=== PATIENT | female | born 1945 ===

== ENCOUNTER 2018-10-12 11:43 | Day surgery (SDC) | payer MEDICARE ==
[2018-10-12 11:44] VITALS: BMI 28.3
--- NOTE | 2018-10-12 14:26 | CT ---
Date of service: 10/12/2018 PROCEDURE: CT NECK WITHOUT CONTRAST HISTORY: Questionable fish bone esophagus level of clavicles x 6 days COMPARISON: No prior study available for comparison. TECHNIQUE: CT of the neck without intravenous contrast. Coronal and sagittal reformats generated. Radiation dose: Total exam DLP = 327.87 mGy-cm. This CT exam was performed using one or more of the following dose reduction techniques: Automated exposure control, adjustment of the mA and/or kV according to patient size, and/or use of iterative reconstruction technique. FINDINGS: NASOPHARYNX: Unremarkable. SUPRAHYOID NECK: Unremarkable oropharynx, oral cavity, parapharyngeal space and retropharyngeal space. INFRAHYOID NECK: Unremarkable larynx, hypopharynx, and supraglottic space. Vocal cords intact. MASS: None. GLANDS: Parotid and submandibular glands unremarkable. There is a small calcification right lobe thyroid gland. There is a large low-attenuation lesion left lobe thyroid gland for which thyroid ultrasound follow-up recommended. LYMPH NODES: Normal. No lymphadenopathy. CERVICAL SPINE: Mild multilevel degenerative spondylosis of the thoracic spine. OTHER FINDINGS: Mild calcified atherosclerotic plaque changes both carotid bifurcations. No radiopaque foreign bodies are identified. IMPRESSION: There are no radiopaque foreign bodies identified.. Small calcification right lobe thyroid gland with low-attenuation lesion left lobe of the thyroid gland. Recommend follow-up thyroid ultrasound.
--- NOTE | 2018-10-12 14:26 | CP.PCM.HP ---
History of Present Illness - History of Present Illness History of Present Illness: HPI: Patient is a 73 year old female with PMH of Diabetes and HTN presenting with throat pain. Patient was eating fish on Felix night (10/06/18) and felt like a fish bone got stuck in her throat. Patient tried eating more food to try and help push it down with little relief. Patient said she is still able to eat/swallow but the discomfort and pain has been getting worse. Patient feels like something cut her and there is a burning and poking sensation. Patient saw Dr. Bermeo yesterday who referred her to see Dr. Cervantes. Dr. Cervantes saw patient today and did not find anything on exam and believes that the bone is lower that the laryngoscope could see. Patient had tea this morning and her medications. Patient has not eaten anything today. Patient denies headache, chest pain, shortness of breath, abdominal pain, nausea, vomiting, constipation, or diarrhea. Cardio: Dr. Gardner All:NKDA PMHx: DMII, HTN Family History- Mom: of [place] at 84, Dad: DMII, Parkinson's, Alzheimer's Social- denies tobacco, alcohol, illicit drug use, lives with Surgical History- hysterectomy 2013, R breast cyst drainage/removal 2018 Present on Admission - Present on Admission Any Indicators Present on Admission: No History of DVT/PE: No History of Uncontrolled Diabetes: No Urinary Catheter: No Decubitus Ulcer Present: No Review of Systems - Constitutional Constitutional: absent: Fever, Headache - EENT Nose/Mouth/Throat: Odynophagia, Sore Throat. absent: Hoarsness - Cardiovascular Cardiovascular: absent: Chest Pain, Dyspnea - Respiratory Respiratory: absent: Cough, Stridor - Gastrointestinal Gastrointestinal: absent: Abdominal Pain, Nausea, Vomiting - Integumentary Integumentary: absent: Rash - Neurological Neurological: absent: Dizziness Past Patient History - Past Social History Smoking Status: Never Smoked - CARDIAC Hx Hypercholesterolemia: Yes Hx Hypertension: Yes - ENDOCRINE/METABOLIC Hx Diabetes Mellitus Type 2: Yes - PSYCHIATRIC Hx Substance Use: No - SURGICAL HISTORY Hx Hysterectomy: Yes (Partial) - ANESTHESIA Hx Anesthesia: Yes Hx Anesthesia Reactions: No Meds Allergies/Adverse Reactions: Allergies Allergy/AdvReac Type Severity Reaction Status Date / Time No Known Allergies Allergy Verified 10/12/18 11:59 Physical Exam - Constitutional Appears: Non-toxic, No Acute Distress - Head Exam Head Exam: ATRAUMATIC, NORMAL INSPECTION, NORMOCEPHALIC - Eye Exam Eye Exam: EOMI, Normal appearance - ENT Exam ENT Exam: Mucous Membranes Moist - Neck Exam Neck exam: Positive for: Normal Inspection - Respiratory Exam Respiratory Exam: Clear to Auscultation Bilateral, NORMAL BREATHING PATTERN. absent: Rales, Rhonchi, Wheezes, Respiratory Distress, Stridor - Cardiovascular Exam Cardiovascular Exam: REGULAR RHYTHM, RRR, +S1, +S2 - GI/Abdominal Exam GI & Abdominal Exam: Normal Bowel Sounds, Soft - Extremities Exam Extremities exam: Positive for: normal inspection. Negative for: tenderness - Neurological Exam Neurological exam: Alert, Oriented x3 - Psychiatric Exam Psychiatric exam: Normal Affect, Normal Mood - Skin Skin Exam: Intact, Normal Color, Warm Results - Vital Signs Recent Vital Signs: Last Vital Signs Temp 98.5 F 10/12/18 11:55 Pulse 92 H 10/12/18 11:55 Resp 20 10/12/18 11:55 BP 156/76 H 10/12/18 11:55 Pulse Ox 99 10/12/18 11:55 - Labs Result Diagrams: 10/12/18 14:33 10/12/18 14:33 Assessment & Plan - Assessment and Plan (Free Text) Assessment: Throat Pain 2/2 foreign body? NPO EGD today for evaluation normal laryngoscope today with Dr. Cervantes HTN continue Amlodipine 10mg po daily ASA 81mg po daily DMII Metformin 850mg po BID Prophylaxis SCDs Dispo: possible d/c pending endoscopic evaluation Discussed with Dr. Bermeo
--- NOTE | 2018-10-12 14:32 | CP.PCM.CON ---
<Chen Torres - Last Filed: 10/12/18 15:31> History of Present Illness - History of Present Illness History of Present Illness: Gastroenterology Fellow/PGY6 Consult Note for 73 year old female with PMH of Diabetes and HTN presenting with throat pain. Patient describes immediate mid-epigastric throat pain after fish ingestion on tuesday. She attempted to drink water which resulted in approximately fifty- percent relief. Endorses constant dull throat discomfort since tuesday at level of clavicles. Denies heartburn, acid reflux, chest pain, shortness of breath, abdominal pain, diarrhea, constipation, melena, hematochezia, or unintentional weight loss. She last ate solid food yesterday for dinner of salad with soup containing vegetables and no meat products. Last oral intake today of eight ounces of coffee this morning with her home medications. She was referred to ENT by PCP outpatient with a laryngoscope performed within the last five days that was normal. No prior EGD or colonoscopy. Family History- denies stomach cancer, colon cancer Social History- denies tobacco, alcohol, illicit drug use Surgical History- hysterectomy 2013 Review of Systems - Review of Systems Review of Systems: 12-point review of systems negative except for as above Past Patient History - Past Social History Smoking Status: Never Smoked - CARDIAC Hx Hypercholesterolemia: Yes Hx Hypertension: Yes - ENDOCRINE/METABOLIC Hx Diabetes Mellitus Type 2: Yes - PSYCHIATRIC Hx Substance Use: No - SURGICAL HISTORY Hx Hysterectomy: Yes (Partial) - ANESTHESIA Hx Anesthesia: Yes Hx Anesthesia Reactions: No Meds Allergies/Adverse Reactions: Allergies Allergy/AdvReac Type Severity Reaction Status Date / Time No Known Allergies Allergy Verified 10/12/18 11:59 Physical Exam - Constitutional Appears: Non-toxic, No Acute Distress - Head Exam Head Exam: ATRAUMATIC, NORMOCEPHALIC - Eye Exam Eye Exam: EOMI, PERRL. absent: Scleral icterus Pupil Exam: PERRL. absent: Miosis, Mydriatic - ENT Exam ENT Exam: Mucous Membranes Moist, Normal Oropharynx - Neck Exam Neck exam: Positive for: Full Rom, Normal Inspection - Respiratory Exam Respiratory Exam: Clear to Auscultation Bilateral. absent: Rales, Rhonchi, Wheezes - Cardiovascular Exam Cardiovascular Exam: RRR, +S1, +S2. absent: Gallop, Rubs - GI/Abdominal Exam GI & Abdominal Exam: Normal Bowel Sounds, Soft. absent: Distended, Firm, Guarding, Organomegaly, Rebound, Rigid, Tenderness - Extremities Exam Extremities exam: Positive for: normal inspection. Negative for: pedal edema - Neurological Exam Neurological exam: Alert, Oriented x3 - Psychiatric Exam Psychiatric exam: Normal Affect, Normal Mood - Skin Skin Exam: Dry, Intact, Normal Color, Warm Results - Vital Signs Recent Vital Signs: Last Vital Signs Temp 98.5 F 10/12/18 11:55 Pulse 92 H 10/12/18 11:55 Resp 20 10/12/18 11:55 BP 156/76 H 10/12/18 11:55 Pulse Ox 99 10/12/18 11:55 - Labs Result Diagrams: 10/12/18 14:33 10/12/18 14:33 Assessment & Plan - Assessment and Plan (Free Text) Assessment: 73 year old female with PMH of Diabetes and HTN presenting with throat pain. Active treatment of throat pain with concern for foreign body after fish bone ingestion seven days ago. No prior EGD or colonoscopy. Plan: -plan for EGD today to evaluate for foreign body -NPO status -hemodynamically stable -last oral intake- eight ounces of coffee this morning with her home medications -recent outpatient ENT evaluation- normal laryngoscope in last five days -further recommendations after endoscopic evaluation <Chris Wells - Last Filed: 10/12/18 17:51> Meds - Medications Medications: Current Medications Amlodipine Besylate (Norvasc) 10 mg PO DAILY [facility] Aspirin (Aspirin Chewable) 81 mg PO DAILY [facility] Dextrose (Dextrose 50% Inj) 50 ml IV STAT PRN; Protocol PRN Reason: Hypoglycemia Protocol Dextrose (Glutose 15) 0 gm PO ONCE PRN; Protocol PRN Reason: Hypoglycemia Protocol Glucagon (Glucagen Diagnostic Kit) 0 mg IM STAT PRN; Protocol PRN Reason: Hypoglycemia Protocol Dextrose (Dextrose 5% In Water 1000 Ml) 1,000 mls @ 0 mls/hr IV .Q0M PRN; Protocol PRN Reason: Hypoglycemia Protocol Insulin Human Regular (Novolin R) 0 unit SC Q6H [facility]; Protocol Last Admin: 10/12/18 17:22 Dose: Not Given Metformin HCl (Glucophage) 850 mg PO BIDCC [facility] Results - Vital Signs Recent Vital Signs: Last Vital Signs Temp 97.7 F 10/12/18 16:17 Pulse 74 03/21/19 16:17 Resp 20 10/12/18 16:17 BP 150/69 10/12/18 16:17 Pulse Ox 97 10/12/18 16:35 - Labs Result Diagrams: 10/12/18 14:33 10/12/18 14:33 Labs: Laboratory Results - last 24 hr 10/12/18 10/12/18 10/12/18 14:33 14:33 14:33 WBC 7.2 RBC 3.91 Hgb 11.9 Hct 36.1 MCV 92.3 D MCH 30.5 MCHC 33.0 RDW 13.7 Plt Count 207 MPV 8.2 Neut % (Auto) 64.0 Lymph % (Auto) 24.1 [place] % (Auto) 7.1 Eos % (Auto) 4.1 H Baso % (Auto) 0.7 Neut # (Auto) 4.6 Lymph # (Auto) 1.7 [place] # (Auto) 0.5 Eos # (Auto) 0.3 Baso # (Auto) 0.1 PT 11.2 INR 1.0 APTT 35 H Sodium 137 Potassium 4.2 Chloride 102 Carbon Dioxide 29 Anion Gap 11 BUN 13 Creatinine 0.7 Est GFR ( Amer) > 60 Est GFR (Non-Af Amer) > 60 POC Glucose (mg/dL) Random Glucose 148 H Calcium 10.1 Total Bilirubin 0.3 AST 24 ALT 14 Alkaline Phosphatase 107 Total Protein 7.0 Albumin 4.4 Globulin 2.6 Albumin/Globulin Ratio 1.7 10/12/18 15:53 WBC RBC Hgb Hct MCV MCH MCHC RDW Plt Count MPV Neut % (Auto) Lymph % (Auto) Red[place] % (Auto) Eos % (Auto) Baso % (Auto) Neut # (Auto) Lymph # (Auto) Red[place] # (Auto) Eos # (Auto) Baso # (Auto) PT INR APTT Sodium Potassium Chloride Carbon Dioxide Anion Gap BUN Creatinine Est GFR ( Amer) Est GFR (Non-Af Amer) POC Glucose (mg/dL) 137 H Random Glucose Calcium Total Bilirubin AST ALT Alkaline Phosphatase Total Protein Albumin Globulin Albumin/Globulin Ratio Attending/Attestation - Attestation I have personally seen and examined this patient.: Yes I have fully participated in the care of the patient.: Yes I have reviewed all pertinent clinical information: Yes Notes (Text): 10/12/18 17:49 CT scan of the throat shows no evidence of foreign body or inflammatory reaction that would be expected after six days if embedded in tissue for this period of time. Plan for emergency EGD today to assess for foreign body. IV fluids and PPI.
[2018-10-12 14:38] LABS: BASO # 0.1 K/uL (0.0-0.2); BASO % 0.7 % (0.0-2.0); EOS # 0.3 K/uL (0.0-0.7); EOS % 4.1 % (0.0-4.0); HEMOGLOBIN 11.9 g/dL (11.0-16.0); LYMPH # 1.7 K/uL (1.0-4.3); LYMPH % 24.1 % (20.0-40.0); MEAN CELL VOLUME 92.3 fL (81.0-99.0); MEAN CORPUSCULAR HEMOGLOBIN 30.5 pg (27.0-31.0); MEAN PLATELET VOLUME 8.2 fL (7.2-11.7); MONO # 0.5 K/uL (0.0-0.8); MONO % 7.1 % (0.0-10.0); NEUT # 4.6 K/uL (1.8-7.0); RBC 3.91 Mil/uL (3.80-5.20); RED CELL DISTRIBUTION WIDTH 13.7 % (11.5-14.5); WHITE BLOOD COUNT 7.2 K/uL (4.8-10.8)
[2018-10-12 14:46] LABS: PROTHROMBIN TIME 11.2 SECONDS (9.7-12.2)
[2018-10-12 14:55] LABS: ALB/GLOB RATIO 1.7 (1.0-2.1); ALBUMIN 4.4 g/dL (3.5-5.0); ALT/SGPT 14 U/L (9-52); AST/SGOT 24 U/L (14-36); BLOOD UREA NITROGEN 13 mg/dL (7-17); CALCIUM 10.1 mg/dl (8.6-10.4); GFR NON-AFRICAN AMERICAN > 60
--- NOTE | 2018-10-12 15:02 | RAD ---
Date of service: 10/12/2018 PROCEDURE: CHEST RADIOGRAPH, 1 VIEW HISTORY: SOB COMPARISON: 02/28/2013 FINDINGS: LUNGS: Clear. PLEURA: No pneumothorax or pleural fluid seen. CARDIOVASCULAR: There is atherosclerotic calcification of the thoracic aorta. Normal heart size. No congestive change. Please note that there is no radiopaque foreign body seen along the tracheal bronchial tree. OSSEOUS STRUCTURES: No significant abnormalities. VISUALIZED UPPER ABDOMEN: Normal. OTHER FINDINGS: None. IMPRESSION: No radiopaque foreign body identified.
[2018-10-12] MEDS ORDERED: Glucagon Recombinant 1 mg Inj IM PRN (15:10)
[2018-10-12] MEDS ORDERED: Dextrose 50% SYRINGE Inj (50 ml) IV PRN (15:10)
[2018-10-12] MEDS ORDERED: (Novolin R) Insulin Human Regular 100 units/ml vial SC SCH ×2 (15:15→18:00)
--- NOTE | 2018-10-12 15:24 | CP.PCM.DIS ---
<Hank Lutz E - Last Filed: 10/12/18 15:38> Provider - Provider Date of Admission: 10/12/18 14:06 Attending physician: Issac Bermeo Jr, MD Consults: 10/12/18 14:41 Gastroenterology Consult Routine Comment: esophagus FB Consulting Provider: Chris Wells Consulting Physician: Chris Wells Reason for Consult: esophagus FB Hospital Course - Lab Results Lab Results: Most Recent Lab Values WBC 7.2 K/uL (4.8-10.8) 10/12/18 14:33 RBC 3.91 Mil/uL (3.80-5.20) 10/12/18 14:33 Hgb 11.9 g/dL (11.0-16.0) 10/12/18 14:33 Hct 36.1 % (34.0-47.0) 10/12/18 14:33 MCV 92.3 fL (81.0-99.0) D 10/12/18 14:33 MCH 30.5 pg (27.0-31.0) 10/12/18 14:33 MCHC 33.0 g/dL (33.0-37.0) 10/12/18 14:33 RDW 13.7 % (11.5-14.5) 10/12/18 14:33 Plt Count 207 K/uL (130-400) 10/12/18 14:33 MPV 8.2 fL (7.2-11.7) 10/12/18 14:33 Neut % (Auto) 64.0 % (50.0-75.0) 10/12/18 14:33 Lymph % (Auto) 24.1 % (20.0-40.0) 10/12/18 14:33 [place] % (Auto) 7.1 % (0.0-10.0) 10/12/18 14:33 Eos % (Auto) 4.1 % (0.0-4.0) H 10/12/18 14:33 Baso % (Auto) 0.7 % (0.0-2.0) 10/12/18 14:33 Neut # (Auto) 4.6 K/uL (1.8-7.0) 10/12/18 14:33 Lymph # (Auto) 1.7 K/uL (1.0-4.3) 10/12/18 14:33 [place]imer # (Auto) 0.5 K/uL (0.0-0.8) 10/12/18 14:33 Eos # (Auto) 0.3 K/uL (0.0-0.7) 10/12/18 14:33 Baso # (Auto) 0.1 K/uL (0.0-0.2) 10/12/18 14:33 PT 11.2 SECONDS (9.7-12.2) 10/12/18 14:33 INR 1.0 10/12/18 14:33 APTT 35 SECONDS (21-34) H 10/12/18 14:33 Sodium 137 mmol/L (132-148) 10/12/18 14:33 Potassium 4.2 mmol/L (3.6-5.2) 10/12/18 14:33 Chloride 102 mmol/L (98-107) 10/12/18 14:33 Carbon Dioxide 29 mmol/L (22-30) 10/12/18 14:33 Anion Gap 11 (10-20) 10/12/18 14:33 BUN 13 mg/dL (7-17) 10/12/18 14:33 Creatinine 0.7 mg/dL (0.7-1.2) 10/12/18 14:33 Est GFR ( Amer) > 60 10/12/18 14:33 Est GFR (Non-Af Amer) > 60 10/12/18 14:33 Random Glucose 148 mg/dL (65-105) H 10/12/18 14:33 Calcium 10.1 mg/dl (8.6-10.4) 10/12/18 14:33 Total Bilirubin 0.3 mg/dL (0.2-1.3) 10/12/18 14:33 AST 24 U/L (14-36) 10/12/18 14:33 ALT 14 U/L (9-52) 10/12/18 14:33 Alkaline Phosphatase 107 U/L (38-126) 10/12/18 14:33 Total Protein 7.0 g/dL (6.3-8.3) 10/12/18 14:33 Albumin 4.4 g/dL (3.5-5.0) 10/12/18 14:33 Globulin 2.6 gm/dL (2.2-3.9) 10/12/18 14:33 Albumin/Globulin Ratio 1.7 (1.0-2.1) 10/12/18 14:33 Discharge Plan - Discharge Medications Prescriptions: Famotidine [Pepcid] 20 mg PO DAILY #7 tab - Follow Up Plan Condition: GOOD Disposition: HOME/ ROUTINE Instructions: Foreign Body, Swallowed, Adult (DC) Additional Instructions: Patient had endoscopy performed by Dr. Wells fishbone was removed from esophagus Patient stable for discharge. Please follow up with Dr Wells in the office If symptoms return, please seek medical attention take care and be well Referrals: Chris Wells MD [Staff Provider] - <Kenzie Moser - Last Filed: 10/13/18 15:56> Provider - Provider Date of Admission: 10/12/18 14:06 Attending physician: Issac Bermeo Jr, MD Consults: 10/12/18 14:41 Gastroenterology Consult Routine Comment: esophagus FB Consulting Provider: Chris Wells Consulting Physician: Chris Wells Reason for Consult: esophagus FB Time Spent in preparation of Discharge (in minutes): 35 Diagnosis - Discharge Diagnosis (1) Reflux esophagitis Status: Acute (2) Hiatal hernia Status: Acute Hospital Course - Lab Results Lab Results: Most Recent Lab Values WBC 7.2 K/uL (4.8-10.8) 10/12/18 14:33 RBC 3.91 Mil/uL (3.80-5.20) 10/12/18 14:33 Hgb 11.9 g/dL (11.0-16.0) 10/12/18 14:33 Hct 36.1 % (34.0-47.0) 10/12/18 14:33 MCV 92.3 fL (81.0-99.0) D 10/12/18 14:33 MCH 30.5 pg (27.0-31.0) 10/12/18 14:33 MCHC 33.0 g/dL (33.0-37.0) 10/12/18 14:33 RDW 13.7 % (11.5-14.5) 10/12/18 14:33 Plt Count 207 K/uL (130-400) 10/12/18 14:33 MPV 8.2 fL (7.2-11.7) 10/12/18 14:33 Neut % (Auto) 64.0 % (50.0-75.0) 10/12/18 14:33 Lymph % (Auto) 24.1 % (20.0-40.0) 10/12/18 14:33 [place] % (Auto) 7.1 % (0.0-10.0) 10/12/18 14:33 Eos % (Auto) 4.1 % (0.0-4.0) H 10/12/18 14:33 Baso % (Auto) 0.7 % (0.0-2.0) 10/12/18 14:33 Neut # (Auto) 4.6 K/uL (1.8-7.0) 10/12/18 14:33 Lymph # (Auto) 1.7 K/uL (1.0-4.3) 10/12/18 14:33 [place] # (Auto) 0.5 K/uL (0.0-0.8) 10/12/18 14:33 Eos # (Auto) 0.3 K/uL (0.0-0.7) 10/12/18 14:33 Baso # (Auto) 0.1 K/uL (0.0-0.2) 10/12/18 14:33 PT 11.2 SECONDS (9.7-12.2) 10/12/18 14:33 INR 1.0 10/12/18 14:33 APTT 35 SECONDS (21-34) H 10/12/18 14:33 Sodium 137 mmol/L (132-148) 10/12/18 14:33 Potassium 4.2 mmol/L (3.6-5.2) 10/12/18 14:33 Chloride 102 mmol/L (98-107) 10/12/18 14:33 Carbon Dioxide 29 mmol/L (22-30) 10/12/18 14:33 Anion Gap 11 (10-20) 10/12/18 14:33 BUN 13 mg/dL (7-17) 10/12/18 14:33 Creatinine 0.7 mg/dL (0.7-1.2) 10/12/18 14:33 Est GFR ( Amer) > 60 10/12/18 14:33 Est GFR (Non-Af Amer) > 60 10/12/18 14:33 Random Glucose 148 mg/dL (65-105) H 10/12/18 14:33 Calcium 10.1 mg/dl (8.6-10.4) 10/12/18 14:33 Total Bilirubin 0.3 mg/dL (0.2-1.3) 10/12/18 14:33 AST 24 U/L (14-36) 10/12/18 14:33 ALT 14 U/L (9-52) 10/12/18 14:33 Alkaline Phosphatase 107 U/L (38-126) 10/12/18 14:33 Total Protein 7.0 g/dL (6.3-8.3) 10/12/18 14:33 Albumin 4.4 g/dL (3.5-5.0) 10/12/18 14:33 Globulin 2.6 gm/dL (2.2-3.9) 10/12/18 14:33 Albumin/Globulin Ratio 1.7 (1.0-2.1) 10/12/18 14:33 - Hospital Course Hospital Course: "HPI: Patient is a 73 year old female with PMH of Diabetes and HTN presenting with throat pain. Patient was eating fish on Tuesday night (10/06/18) and felt li ke a fish bone got stuck in her throat. Patient tried eating more food to try and help push it down with little relief. Patient said she is still able to eat/swallow but the discomfort and pain has been getting worse. Patient feels like something cut her and there is a burning and poking sensation. Patient saw Dr. Bermeo yesterday who referred her to see Dr. Cervantes. Dr. Cervantes saw patient today and did not find anything on exam and believes that the bone is lower that the laryngoscope could see. Patient had tea this morning and her medications. Patient has not eaten anything today. Patient denies headache, chest pain, shortness of breath, abdominal pain, nausea, vomiting, constipation, or diarrhea." Patient had endoscopy performed by Dr. Wells. No foreign body or inflammatory reaction seen. Reflux esophagitis and small hiatal hernia seen. Pre-pyloric gastritis with superficial erosions and biopsy done to rule out H pylori. Patient stable for discharge. Patient to follow up with Dr. Bermeo as an outpatient and to follow up with GI in 2 weeks if symptoms persist. This is a summary of the patient's hospital course, please see chart for full details. Discharge Exam - Head Exam Head Exam: ATRAUMATIC, NORMAL INSPECTION, NORMOCEPHALIC - Eye Exam Eye Exam: EOMI, Normal appearance - ENT Exam ENT Exam: Mucous Membranes Moist - Neck Exam Neck exam: Normal Inspection - Respiratory Exam Respiratory Exam: Clear to PA & Lateral, NORMAL BREATHING PATTERN, UNREMARKABLE. absent: Rhonchi, Wheezes, Respiratory Distress, Stridor - Cardiovascular Exam Cardiovascular Exam: REGULAR RHYTHM, RRR, +S1, +S2 - GI/Abdominal Exam GI & Abdominal Exam: Normal Bowel Sounds, Soft. absent: Tenderness - Extremities Exam Extremities exam: normal inspection - Neurological Exam Neurological exam: Alert, Oriented x3 - Psychiatric Exam Psychiatric exam: Normal Affect, Normal Mood - Skin Skin Exam: Intact, Normal Color, Warm
--- NOTE | 2018-10-12 15:56 | C.PDOC ---
History Of Present Illness 73 year old female referred to ED by for GI evaluation. Patient states that she feels a foreign body stuck in her esophagus for the past 6 days since she ate a fish dinner with bones . Patient states that she feels a sensation of something stuck. She states that she has been eating with dysphasia. She was seen by Dr. Cervantes. Nasalpharyngeo fiberoptic scope showed no foreign body above the vocal cords. She denies blood, coughing, nausea, and fever. Time Seen by Provider: 10/12/18 12:01 Chief Complaint (Nursing): Foreign Body History Per: Patient History/Exam Limitations: no limitations Onset/Duration Of Symptoms: Days (6) Current Symptoms Are (Timing): Still Present Context: Travel Associated Symptoms: denies: Nausea, Dyspnea, Diaphoresis Modifying Factors: None Exacerbating Factors: None Alleviating Factors: None Past Medical History Reviewed: Historical Data, Nursing Documentation, Vital Signs Vital Signs: Last Vital Signs Temp 98 F 10/12/18 14:45 Pulse 72 10/12/18 14:45 Resp 20 10/12/18 14:45 BP 132/72 10/12/18 14:45 Pulse Ox 97 10/12/18 14:45 - Medical History PMH: Diabetes, HTN, Hypercholesterolemia Surgical History: No Surg Hx - [facility] Procedures CYSTOSCOPY NEC (03/05/13) D & C NEC (01/29/13) LAPAROSCOP SUPRACERVICAL HYSTERECTOMY (LSH) (03/05/13) Family History: States: Unknown Family Hx - Social History Hx Alcohol Use: No Hx Substance Use: No - Immunization History Hx Tetanus Toxoid Vaccination: No Hx Influenza Vaccination: Yes Hx Pneumococcal Vaccination: Yes Review Of Systems Constitutional: Negative for: Fever, Chills, Weakness ENT: Positive for: Other (feels foreign body stuck in the esophagus, no bleeding) Respiratory: Negative for: Cough Gastrointestinal: Negative for: Nausea Neurological: Negative for: Weakness, Numbness, Dizziness Physical Exam - Physical Exam Appears: Non-toxic, No Acute Distress Skin: Normal Color, Warm, Dry Head: Atraumatic, Normacephalic Throat: Other (Oropharynx clear, no foreign body noted) Neck: Normal ROM, Supple Chest: Symmetrical, No Deformity Respiratory: No Accessory Muscle Use Neurological/Psych: Oriented x3, Normal Speech, Normal Cognition ED Course And Treatment - Laboratory Results Result Diagrams: 10/12/18 14:33 10/12/18 14:33 Lab Results: PT 11.2 SECONDS (9.7-12.2) 10/12/18 14:33 INR 1.0 10/12/18 14:33 APTT 35 SECONDS (21-34) H 10/12/18 14:33 Total Bilirubin 0.3 mg/dL (0.2-1.3) 10/12/18 14:33 AST 24 U/L (14-36) 10/12/18 14:33 ALT 14 U/L (9-52) 10/12/18 14:33 Alkaline Phosphatase 107 U/L (38-126) 10/12/18 14:33 Total Protein 7.0 g/dL (6.3-8.3) 10/12/18 14:33 Albumin 4.4 g/dL (3.5-5.0) 10/12/18 14:33 Globulin 2.6 gm/dL (2.2-3.9) 10/12/18 14:33 Albumin/Globulin Ratio 1.7 (1.0-2.1) 10/12/18 14:33 Lab Interpretation: Normal ECG: Interpreted By Me, Viewed By Me ECG Rhythm: Sinus Rhythm ECG Interpretation: Normal Rate From EC O2 Sat by Pulse Oximetry: 97 (in RA) Pulse Ox Interpretation: Normal - Radiology CXR: Interpreted by Me CXR Interpretation: Yes: No Acute Disease - CT Scan/US Neck Soft Tissue CT Other Rad Studies (CT/US): Interpreted By Me, Read By Radiologist CT/US Interpretation: IMPRESSION: There are no radiopaque foreign bodies identified.. Small calcification right lobe thyroid gland with low-attenuation lesion left lobe of the thyroid gland. Recommend follow-up thyroid ultrasound. Progress Note: Discussed case with Dr. Eddi Wells. Requested soft tissue neck CT and consult with GI fellow. 1400: Spoke with GI fellow and will admit patient for scope at 6 pm. 1400:discussed with and resident. Agrees to admit patient for observation and scope. Neck Soft Tissue CT, CXR, and EKG ordered for patient. Labs with CMP and CBC ordered for patient. Reevaluation Time: 15:00 Reassessment Condition: Unchanged Medical Decision Making Medical Decision Making: probable fish bone caught in esophagus from fish dinner 6 days ago no FB noted on soft tissue neck CT Disposition Doctor Will See Patient In The: Hospital Counseled Patient/Family Regarding: Studies Performed, Diagnosis - Disposition Disposition: HOSPITALIZED Disposition Time: 15:00 Condition: GOOD - Clinical Impression Clinical Impression: FB esophagus - Scribe Statement The provider has reviewed the documentation as recorded by the Scribe (Nasrin Chávez) All medical record entries made by the Scribe were at my direction and personally dictated by me. I have reviewed the chart and agree that the record accurately reflects my personal performance of the history, physical exam, medical decision making, and the department course for this patient. I have also personally directed, reviewed, and agree with the discharge instructions and disposition.
[2018-10-12] MEDS ORDERED: Lactated Ringer's 500 ML IV ONE ×3 (17:24)
[2018-10-12] MEDS ORDERED: Propofol 10 mg/ml Inj (20 ML) ONE (17:30)
[2018-10-12] MEDS ORDERED: Pantoprazole 40 mg EC Tab PO STA ×2 (17:52→17:53)
--- NOTE | 2018-10-12 17:58 | CP.PCM.PN ---
Subjective - Date & Time of Evaluation Date of Evaluation: 10/12/18 Time of Evaluation: 17:55 - Subjective Subjective: Brief EGD NOte: No foreign body or inflammatory reaction anywhere in the upper esophagus. Reflux esophagitis and small hiatal hernia Pre-pyloric gastritis with superficial erosions Check biopsies PPI for 14 days po ENT follow up as out patient if symptoms persist. No relation to fish bone ingestion (no inflammation noted six days after ingestion would be highly unlikely) Stable for discharge this evening if able to tolerate soft diet. Objective - Vital Signs/Intake and Output Vital Signs (last 24 hours): Temp Pulse Resp BP Pulse Ox 97.7 F 77 18 146/78 100 10/12/18 16:17 10/12/18 17:25 10/12/18 17:25 10/12/18 17:25 10/12/18 17:25 - Medications Medications: Current Medications Amlodipine Besylate (Norvasc) 10 mg PO DAILY [facility] Aspirin (Aspirin Chewable) 81 mg PO DAILY [facility] Dextrose (Dextrose 50% Inj) 50 ml IV STAT PRN; Protocol PRN Reason: Hypoglycemia Protocol Dextrose (Glutose 15) 0 gm PO ONCE PRN; Protocol PRN Reason: Hypoglycemia Protocol Glucagon (Glucagen Diagnostic Kit) 0 mg IM STAT PRN; Protocol PRN Reason: Hypoglycemia Protocol Dextrose (Dextrose 5% In Water 1000 Ml) 1,000 mls @ 0 mls/hr IV .Q0M PRN; Protocol PRN Reason: Hypoglycemia Protocol Insulin Human Regular (Novolin R) 0 unit SC Q6H [facility]; Protocol Last Admin: 10/12/18 17:22 Dose: Not Given Metformin HCl (Glucophage) 850 mg PO BIDCC [facility] - Labs Labs: 10/12/18 14:33 10/12/18 14:33 PT 11.2 SECONDS (9.7-12.2) 10/12/18 14:33 INR 1.0 10/12/18 14:33 APTT 35 SECONDS (21-34) H 10/12/18 14:33
[2018-10-12 19:02] VITALS: BP 153/62; PULSE 76; RESP 14; TEMP 97.7; O2SAT 99
== END 2018-10-12 20:01 | disposition home or self-care (01) ==
LOC: C.ER 11:43 → C.SDS 11:43 → C.3T 14:06 → UNDOADMOB 14:06 → C.SDS 14:43 → C.ER 14:43 → EDSTATUS 15:39 → UNDODISOB 20:01 → C.SDS 20:01
PROVIDERS: ATTEND Internal Medicine
DX: K21.0 Gastro-esophageal reflux disease with esophagitis (principal); K29.00 Acute gastritis without bleeding; K44.9 Diaphragmatic hernia without obstruction or gangrene; B96.81 Helicobacter pylori [H. pylori] as the cause of diseases classified elsewhere; R07.0 Pain in throat; E11.9 Type 2 diabetes mellitus without complications; I10 Essential (primary) hypertension; E78.00 Pure hypercholesterolemia, unspecified; Z79.84 Long term (current) use of oral hypoglycemic drugs; Z90.710 Acquired absence of both cervix and uterus; Z82.0 Family history of epilepsy and other diseases of the nervous system; Z82.49 Family history of ischemic heart disease and other diseases of the circulatory system; Z83.3 Family history of diabetes mellitus
CPT/HCPCS: 36415; 43239; 70490; 71045; 80053; 82948; 85025; 85610; 85730; 88305; 88312; 88313; 88342; J7120

== ENCOUNTER 2018-10-20 12:20 | Observation (INO) | payer MEDICARE ==
[2018-10-20 12:20] VITALS: BMI 28.3
[2018-10-20 13:22] LABS: BASO % 0.7 % (0.0-2.0); EOS # 0.1 K/uL (0.0-0.7); EOS % 0.9 % (0.0-4.0); HEMOGLOBIN 11.9 g/dL (11.0-16.0); LYMPH # 0.5 K/uL (1.0-4.3); LYMPH % 6.4 % (20.0-40.0); MEAN CELL VOLUME 90.5 fL (81.0-99.0); MEAN CORPUSCULAR HEMOGLOBIN 31.3 pg (27.0-31.0); MEAN CORPUSCULAR HGB CONC 34.6 g/dL (33.0-37.0); MEAN PLATELET VOLUME 7.7 fL (7.2-11.7); MONO # 0.9 K/uL (0.0-0.8); MONO % 13.1 % (0.0-10.0); NEUT # 5.6 K/uL (1.8-7.0); NEUT % 78.9 % (50.0-75.0); PLATELET COUNT 224 K/uL (130-400); RBC 3.81 Mil/uL (3.80-5.20); RED CELL DISTRIBUTION WIDTH 13.6 % (11.5-14.5); WHITE BLOOD COUNT 7.1 K/uL (4.8-10.8)
[2018-10-20 13:35] LABS: SQUAMOUS EPITHIAL 1 /hpf (0-5); URINE BACTERIA MANY (<OCC); URINE BILIRUBIN NEGATIVE (NEGATIVE); URINE BLOOD NEGATIVE (NEGATIVE); URINE CLARITY Hazy (Clear); URINE COLOR Yellow (YELLOW); URINE GLUCOSE (UA) NORMAL (Normal); URINE LEUKOCYTE ESTERASE TRACE Leu/uL (Negative); URINE PROTEIN 2+ mg/dL (NEGATIVE); URINE UROBILINOGEN NORMAL mg/dL (0.2-1.0)
[2018-10-20 13:39] LABS: ALB/GLOB RATIO 1.7 (1.0-2.1); ALBUMIN 4.5 g/dL (3.5-5.0); ALT/SGPT 17 U/L (9-52); AST/SGOT 32 U/L (14-36); BLOOD UREA NITROGEN 15 mg/dL (7-17); CALCIUM 9.4 mg/dl (8.6-10.4); GFR NON-AFRICAN AMERICAN > 60
[2018-10-20] MEDS ORDERED: cefTRIAXone IV 1 gm in Dextros 50 ML IV ONE (13:56)
--- NOTE | 2018-10-20 13:57 | C.PDOC ---
History Of Present Illness The patient comes in complaining of fever, body aches, cough and sore throat since yesterday. Patient states she went to see her doctor today who sent her to the ED for further testing. Per chart she had Rapid strep and flu tests which were negative. Patient has fever of 102F and elevated heart rate. Patient denies headache, dizziness, SOB, chest pain, abdominal pain, vomiting or diarrhea. HPI: Influenza Time Seen by Provider: 10/20/18 12:37 Chief Complaint: Flu-like Symptoms Chief Complaint (Provider): Flu-like Symptoms History Per: Patient Exam Limitations: no limitations Onset/Duration Of Symptoms: Days Symptoms include: fever, bodyaches, sore throat, cough Risk factors for flu complications: Yes: adult > 65 years Past Medical History Reviewed: Historical Data, Nursing Documentation, Vital Signs Vital Signs: Last Vital Signs Temp 102.7 F H 10/20/18 12:31 Pulse 108 H 10/20/18 12:31 Resp 18 10/20/18 12:31 BP 169/77 H 10/20/18 12:31 Pulse Ox 98 10/20/18 12:31 - Medical History PMH: Diabetes, HTN, Hypercholesterolemia - [facility] Procedures CYSTOSCOPY NEC (03/05/13) D & C NEC (01/29/13) LAPAROSCOP SUPRACERVICAL HYSTERECTOMY (LSH) (03/05/13) Family History: States: Unknown Family Hx - Social History Hx Alcohol Use: No Hx Substance Use: No - Immunization History Hx Tetanus Toxoid Vaccination: No Hx Influenza Vaccination: Yes Hx Pneumococcal Vaccination: Yes Review Of Systems Except As Marked, All Systems Reviewed And Found Negative. Constitutional: Positive for: Fever, Other (Body aches) ENT: Positive for: Throat Pain Cardiovascular: Negative for: Chest Pain Respiratory: Positive for: Cough. Negative for: Shortness of Breath Gastrointestinal: Negative for: Vomiting, Abdominal Pain, Diarrhea Neurological: Negative for: Headache, Dizziness Physical Exam - Physical Exam Appears: Well, Non-toxic, No Acute Distress Skin: Warm, Dry Head: Atraumatic, Normacephalic Eye(s): bilateral: Normal Inspection Oral Mucosa: Moist Neck: Normal ROM Chest: Symmetrical Cardiovascular: Rhythm Regular, No Murmur Respiratory: Normal Breath Sounds, No Rales, No Rhonchi, No Wheezing Gastrointestinal/Abdominal: Soft, No Tenderness, No Distention Extremity: Bilateral: Atraumatic, Normal Color And Temperature Neurological/Psych: Oriented x3, Normal Speech Medical Decision Making Medical Decision Making: Impression: Fever, flu like sx Plan: * Labs * CXR * UA * Rapid flu Progress: Labs reviewed no leukocytosis or electrolyte abnormality. Rapid Flu was +A. UA shows +LE, WBC and nitrates. Contact Dr Bermeo to discuss results. He recommends patient be admitted for observation to his service. I contacted medical technician assistant for admission orders - Laboratory Results Result Diagrams: 10/20/18 13:11 10/20/18 13:11 Lab Results: Total Bilirubin 0.3 mg/dL (0.2-1.3) 10/20/18 13:11 AST 32 U/L (14-36) 10/20/18 13:11 ALT 17 U/L (9-52) 10/20/18 13:11 Alkaline Phosphatase 107 U/L (38-126) 10/20/18 13:11 Total Protein 7.1 g/dL (6.3-8.3) 10/20/18 13:11 Albumin 4.5 g/dL (3.5-5.0) 10/20/18 13:11 Globulin 2.6 gm/dL (2.2-3.9) 10/20/18 13:11 Albumin/Globulin Ratio 1.7 (1.0-2.1) 10/20/18 13:11 Urine Color Yellow (YELLOW) 10/20/18 13:28 Urine Clarity Hazy (Clear) 10/20/18 13:28 Urine pH 5.0 (5.0-8.0) 10/20/18 13:28 Ur Specific [place] 1.015 (1.003-1.030) 10/20/18 13:28 Urine Protein 2+ mg/dL (NEGATIVE) H 10/20/18 13:28 Urine Glucose (UA) Normal mg/dL (Normal) 10/20/18 13:28 Urine Ketones Negative mg/dL (NEGATIVE) 10/20/18 13:28 Urine Blood Negative (NEGATIVE) 10/20/18 13:28 Urine Nitrate Positive (NEGATIVE) H 10/20/18 13:28 Urine Bilirubin Negative (NEGATIVE) 10/20/18 13:28 Urine Urobilinogen Normal mg/dL (0.2-1.0) 10/20/18 13:28 Ur Leukocyte Esterase Trace Morales/uL (Negative) 10/20/18 13:28 Urine WBC (Auto) 38 /hpf (0-5) H 10/20/18 13:28 Urine RBC (Auto) 2 /hpf (0-3) 10/20/18 13:28 Ur Squamous Epith Cells 1 /hpf (0-5) 10/20/18 13:28 Urine Bacteria Many (<OCC) H 10/20/18 13:28 - ECG O2 Sat by Pulse Oximetry: 98 Pulse Ox Interpretation: Normal - Radiology X-Ray: Interpreted by Me, Viewed By Me X-Ray Interpretation: No Acute Disease Disposition - Disposition Disposition: HOSPITALIZED Disposition Time: 13:57 Condition: STABLE - POA Present On Arrival: None - Clinical Impression Clinical Impression: Influenza A, UTI (urinary tract infection) - PA / [employer] / Resident Statement MD/DO has reviewed & agrees with the documentation as recorded. - Scribe Statement The provider has reviewed the documentation as recorded by the Scribe Sandra De Anda All medical record entries made by the Scribe were at my direction and personally dictated by me. I have reviewed the chart and agree that the record accurately reflects my personal performance of the history, physical exam, medical decision making, and the department course for this patient. I have also personally directed, reviewed, and agree with the discharge instructions and disposition. Decision To Admit - Pt Status Changed To: Hospital Disposition Of: Observation - . Bed Request Type: Regular Admitting Physician: Issac Bermeo Jr. Patient Diagnosis: Influenza A, UTI (urinary tract infection)
[2018-10-20 14:19] LABS: BANDS 1 % (0-2); EOSINOPHIL 1 % (0-4); LYMPHOCYTE 6 % (20-40); MONOCYTE 10 % (0-10); NEUTROPHIL 82 % (50-75); PLATELET ESTIMATE NORMAL (NORMAL); TOTAL CELLS COUNTED 100
[2018-10-20 14:20] LABS: OVALOCYTES SLIGHT
[2018-10-20] MEDS ORDERED: Glucagon Recombinant 1 mg Inj IM PRN (14:47)
[2018-10-20] MEDS ORDERED: Dextrose 50% SYRINGE Inj (50 ml) IV PRN (14:47)
[2018-10-20] MEDS: Sodium Chloride 0.9% 1,000 ML IV SCH (14:56)
--- NOTE | 2018-10-20 15:12 | CP.PCM.HP ---
History of Present Illness - History of Present Illness History of Present Illness: Patient is a 73 year old female with pmhx of DM2 and HTN who presented to the ED with complaints of fevers, weakness, coughing, sore throat that began last night. Patient reports symptoms came on abruptly, and worsened throughout the day, prompting her to come to the ED for further evaluation. Patient reports her had similar symptoms last week for which his PMD prescribed him medication. Pt denies increasing weakness and lethargy, cough and sore throat. Denies chest pain, SOB, nausea, constipation, dysuria. Of not: pt was recently admitted on 10/12 for FB removal of esophagus for which she underwent an EGD pmhx: HTN, DM2 pshx: EGD, hysterectomy, right breast cystectomy meds: norvasc 10mg po, metformin 850mg po bid allergies: NKDA sochx: denies; lives with famhx: cardiac disease, DM2, parkinson's, alzheimer's Present on Admission - Present on Admission Any Indicators Present on Admission: No Review of Systems - Constitutional Constitutional: Chills, Fatigue, Fever, Lethargy, Weakness - EENT Eyes: absent: Blurred Vision Nose/Mouth/Throat: Sore Throat - Cardiovascular Cardiovascular: absent: Chest Pain, Leg Edema, Palpitations - Respiratory Respiratory: Cough. absent: Dyspnea, Hemoptysis - Gastrointestinal Gastrointestinal: absent: Abdominal Pain, Constipation, Nausea - Genitourinary Genitourinary: Urinary Incontinence (chronic leakage). absent: Dysuria, Urinary Hesitance - Neurological Neurological: absent: Dizziness, Headaches, Syncope Past Patient History - Past Social History Smoking Status: Never Smoked - CARDIAC Hx Hypercholesterolemia: Yes Hx Hypertension: Yes - ENDOCRINE/METABOLIC Hx Endocrine Disorders: Yes Hx Diabetes Mellitus Type 2: Yes - PSYCHIATRIC Hx Substance Use: No - SURGICAL HISTORY Hx Surgeries: Yes Hx Hysterectomy: Yes (Partial) - ANESTHESIA Hx Anesthesia: Yes Hx Anesthesia Reactions: No Meds Allergies/Adverse Reactions: Allergies Allergy/AdvReac Type Severity Reaction Status Date / Time No Known Allergies Allergy Verified 10/20/18 12:38 Physical Exam - Constitutional Appears: Non-toxic, No Acute Distress - Head Exam Head Exam: ATRAUMATIC, NORMAL INSPECTION, NORMOCEPHALIC - Eye Exam Eye Exam: EOMI, Normal appearance - ENT Exam ENT Exam: Mucous Membranes Moist, Normal Exam, TM's Normal Bilaterally - Neck Exam Neck exam: Positive for: Normal Inspection - Respiratory Exam Respiratory Exam: Clear to Auscultation Bilateral, NORMAL BREATHING PATTERN. absent: Rales, Respiratory Distress - Cardiovascular Exam Cardiovascular Exam: REGULAR RHYTHM, +S1, +S2. absent: Tachycardia - GI/Abdominal Exam GI & Abdominal Exam: Normal Bowel Sounds, Soft. absent: Distended, Tenderness - Extremities Exam Extremities exam: Positive for: normal inspection. Negative for: calf tendernes s, pedal edema - Neurological Exam Neurological exam: Alert, Oriented x3 - Psychiatric Exam Psychiatric exam: Normal Affect, Normal Mood - Skin Skin Exam: Dry, Intact, Normal Color, Warm Results - Vital Signs Recent Vital Signs: Last Vital Signs Temp 99.7 F H 10/20/18 14:52 Pulse 76 10/20/18 14:52 Resp 18 10/20/18 14:52 BP 120/53 L 10/20/18 14:52 Pulse Ox 95 10/20/18 14:52 - Labs Result Diagrams: 10/20/18 13:11 10/20/18 13:11 Labs: Laboratory Results - last 24 hr 10/20/18 10/20/18 10/20/18 12:42 13:11 13:11 WBC 7.1 RBC 3.81 Hgb 11.9 Hct 34.5 MCV 90.5 MCH 31.3 H MCHC 34.6 RDW 13.6 Plt Count 224 MPV 7.7 Neut % (Auto) 78.9 H Lymph % (Auto) 6.4 L [place] % (Auto) 13.1 H Eos % (Auto) 0.9 Baso % (Auto) 0.7 Neut # (Auto) 5.6 Lymph # (Auto) 0.5 L [place] # (Auto) 0.9 H Eos # (Auto) 0.1 Baso # (Auto) 0.0 Neutrophils % (Manual) 82 H Band Neutrophils % 1 Lymphocytes % (Manual) 6 L Monocytes % (Manual) 10 Eosinophils % (Manual) 1 Platelet Estimate Normal Ovalocytes Slight Sodium 132 Potassium 4.0 Chloride 98 Carbon Dioxide 22 Anion Gap 15 BUN 15 Creatinine 0.7 Est GFR ( Amer) > 60 Est GFR (Non-Af Amer) > 60 POC Glucose (mg/dL) 183 H Random Glucose 166 H Calcium 9.4 Total Bilirubin 0.3 AST 32 ALT 17 Alkaline Phosphatase 107 Total Protein 7.1 Albumin 4.5 Globulin 2.6 Albumin/Globulin Ratio 1.7 Urine Color Urine Clarity Urine pH Ur Specific [place] Urine Protein Urine Glucose (UA) Urine Ketones Urine Blood Urine Nitrate Urine Bilirubin Urine Urobilinogen Ur Leukocyte Esterase Urine WBC (Auto) Urine RBC (Auto) Ur Squamous Epith Cells Urine Bacteria Influenza Typ A,B (EIA) 10/20/18 10/20/18 13:18 13:28 WBC RBC Hgb Hct MCV MCH MCHC RDW Plt Count MPV Neut % (Auto) Lymph % (Auto) [place] % (Auto) Eos % (Auto) Baso % (Auto) Neut # (Auto) Lymph # (Auto) [place] # (Auto) Eos # (Auto) Baso # (Auto) Neutrophils % (Manual) Band Neutrophils % Lymphocytes % (Manual) Monocytes % (Manual) Eosinophils % (Manual) Platelet Estimate Ovalocytes Sodium Potassium Chloride Carbon Dioxide Anion Gap BUN Creatinine Est GFR ( Amer) Est GFR (Non-Af Amer) POC Glucose (mg/dL) Random Glucose Calcium Total Bilirubin AST ALT Alkaline Phosphatase Total Protein Albumin Globulin Albumin/Globulin Ratio Urine Color Yellow Urine Clarity Hazy Urine pH 5.0 Ur Specific [place] 1.015 Urine Protein 2+ H Urine Glucose (UA) Normal Urine Ketones Negative Urine Blood Negative Urine Nitrate Positive H Urine Bilirubin Negative Urine Urobilinogen Normal Ur Leukocyte Esterase Trace Urine WBC (Auto) 38 H Urine RBC (Auto) 2 Ur Squamous Epith Cells 1 Urine Bacteria Many H Influenza Typ A,B (EIA) Pos for influenza a H Assessment & Plan - Assessment and Plan (Free Text) Assessment: 73 year old female admitted for treatment of Influenza A Plan: Influenza A+ febrile on admission 102.7 tachy on admission 108 no leukocytosis Tamiflu x5 days NS @100 Tylenol 650mg po q6 prn fevers f/u CXR UTI, suspected pt is asymptomatic UA: nitrates +, WBC 38, many bacteria f/u urine cx start macrobid 100mg po q12 HTN Continue home meds norvasc 10mg po qd HHD DM2 continue home meds, metformin 850mg po BID accuchecks ACHS hypoglycemia protocol Ppx VTE: heparin q8 GI: protonix 40mg po qd isolation precaution(droplet) Discussed with Dr. Jean-Claude Torres, PGY-1
--- NOTE | 2018-10-20 17:29 | RAD ---
Date of service: 10/20/2018 HISTORY: SOB COMPARISON: 10/12/2018 TECHNIQUE: Chest PA and lateral views FINDINGS: LUNGS: No active pulmonary disease. PLEURA: No significant pleural effusion identified. No pneumothorax apparent. CARDIOVASCULAR: No aortic atherosclerotic calcification present. Normal cardiac size. No pulmonary vascular congestion. OSSEOUS STRUCTURES: No significant abnormalities. VISUALIZED UPPER ABDOMEN: Normal. OTHER FINDINGS: None. IMPRESSION: No active disease.
[2018-10-20 18:56] VITALS: RESP 20
[2018-10-21] MEDS: Sodium Chloride 0.9% 1,000 ML IV SCH (06:05)
--- NOTE | 2018-10-21 07:55 | CP.PCM.PN ---
Subjective - Date & Time of Evaluation Date of Evaluation: 10/21/18 Time of Evaluation: 07:55 - Subjective Subjective: Medicine Progress Note: Patient seen and examined at bedside. Per nursing no acute events occurred overnight .Patient denies any fevers, chills, headaches, dizziness, abdominal pain, or any other complaints. Objective - Vital Signs/Intake and Output Vital Signs (last 24 hours): Temp Pulse Resp BP Pulse Ox 98.5 F 73 20 134/58 L 95 10/21/18 07:10 10/21/18 07:10 10/21/18 07:10 10/21/18 07:10 10/21/18 07:10 Intake and Output: 10/21/18 10/21/18 06:59 18:59 Intake Total 1040 Balance 1040 - Medications Medications: Current Medications Acetaminophen (Tylenol 325mg Tab) 650 mg PO Q6 PRN PRN Reason: Fever >100.4 F Last Admin: 10/21/18 00:21 Dose: 650 mg Amlodipine Besylate (Norvasc) 10 mg PO DAILY [facility] Last Admin: 10/20/18 14:56 Dose: Not Given Dextrose (Dextrose 50% Inj) 0 ml IV STAT PRN; Protocol PRN Reason: Hypoglycemia Protocol Dextrose (Glutose 15) 0 gm PO ONCE PRN; Protocol PRN Reason: Hypoglycemia Protocol Glucagon (Glucagen Diagnostic Kit) 0 mg IM STAT PRN; Protocol PRN Reason: Hypoglycemia Protocol Heparin Sodium (Porcine) (Heparin) 5,000 units SC Q8 [facility] Last Admin: 10/21/18 06:15 Dose: Not Given Sodium Chloride (Sodium Chloride 0.9%) 1,000 mls @ 100 mls/hr IV .Q10H [facility] Last Admin: 10/21/18 06:05 Dose: 100 mls/hr Dextrose (Dextrose 5% In Water 1000 Ml) 1,000 mls @ 0 mls/hr IV .Q0M PRN; Protocol PRN Reason: Hypoglycemia Protocol Metformin HCl (Glucophage) 850 mg PO BID [facility] Last Admin: 10/20/18 18:46 Dose: 850 mg Nitrofurantoin Macrocrystals (Macrobid) 100 mg PO Q12H [facility]; Protocol Last Admin: 10/21/18 06:04 Dose: 100 mg Oseltamivir Phosphate (Tamiflu Cap) 75 mg PO BID [facility]; Protocol Stop: 10/25/18 14:39 Last Admin: 10/20/18 18:46 Dose: 75 mg Pantoprazole Sodium (Protonix Ec Tab) 40 mg PO DAILY [facility] - Labs Labs: 10/20/18 13:11 10/20/18 13:11 - Head Exam Head Exam: ATRAUMATIC, NORMAL INSPECTION - Eye Exam Eye Exam: EOMI, Normal appearance, PERRL Pupil Exam: NORMAL ACCOMODATION, PERRL - ENT Exam ENT Exam: Mucous Membranes Moist, Normal Oropharynx - Respiratory Exam Respiratory Exam: Clear to Ausculation Bilateral, NORMAL BREATHING PATTERN. absent: Decreased Breath Sounds, Prolonged Expiratory Phase - Cardiovascular Exam Cardiovascular Exam: REGULAR RHYTHM, +S1, +S2 - GI/Abdominal Exam GI & Abdominal Exam: Soft, Normal Bowel Sounds. absent: Hyperactive Bowel Sounds - Extremities Exam Extremities Exam: Full ROM, Normal Inspection. absent: Pedal Edema - Back Exam Back Exam: NORMAL INSPECTION. absent: CVA tenderness (R), paraspinal tenderness - Neurological Exam Neurological Exam: Alert, Awake, CN II-XII Intact, Oriented x3 - Psychiatric Exam Psychiatric exam: Normal Affect, Normal Mood. absent: Anxious - Skin Skin Exam: Dry, Intact Assessment and Plan - Assessment and Plan (Free Text) Plan: 73 year old female admitted for treatment of Influenza A Plan: Influenza A+ febrile on admission 102.7 tachy on admission 108 no leukocytosis Tamiflu x5 days Mucinex 600 PO BID Duoneb 3ml RQ6 PRN NS @100 Tylenol 650mg po q6 prn fevers f/u CXR UTI, suspected pt is asymptomatic UA: nitrates +, WBC 38, many bacteria f/u urine cx Continue macrobid 100mg po q12 HTN Continue home meds norvasc 10mg po qd HHD DM2 continue home meds, metformin 850mg po BID accuchecks ACHS hypoglycemia protocol Ppx VTE: heparin q8 GI: protonix 40mg po qd isolation precaution(droplet) Discussed with Dr. Jean-Claude Uribe, PGY-2
[2018-10-21 08:54] LABS: BASO # 0.1 K/uL (0.0-0.2); BASO % 0.7 % (0.0-2.0); EOS % 0.5 % (0.0-4.0); HEMOGLOBIN 12.4 g/dL (11.0-16.0); LYMPH # 1.7 K/uL (1.0-4.3); LYMPH % 21.4 % (20.0-40.0); MEAN CELL VOLUME 90.8 fL (81.0-99.0); MEAN CORPUSCULAR HEMOGLOBIN 31.1 pg (27.0-31.0); MEAN CORPUSCULAR HGB CONC 34.2 g/dL (33.0-37.0); MEAN PLATELET VOLUME 7.6 fL (7.2-11.7); MONO # 1.2 K/uL (0.0-0.8); MONO % 15.1 % (0.0-10.0); NEUT % 62.3 % (50.0-75.0); RBC 3.98 Mil/uL (3.80-5.20); RED CELL DISTRIBUTION WIDTH 13.8 % (11.5-14.5)
[2018-10-21 09:21] LABS: ALB/GLOB RATIO 1.5 (1.0-2.1); ALBUMIN 4.3 g/dL (3.5-5.0); ALT/SGPT 22 U/L (9-52); AST/SGOT 37 U/L (14-36); BLOOD UREA NITROGEN 11 mg/dL (7-17); CALCIUM 9.3 mg/dl (8.6-10.4); GFR NON-AFRICAN AMERICAN > 60
[2018-10-21] MEDS: Pantoprazole 40 mg EC Tab PO SCH (09:43)
[2018-10-21] MEDS ORDERED: Albuterol-Ipratrop 3 mg / 0.5 (3 ml) UD INH PRN (15:50)
[2018-10-21] MEDS: guaiFENesin 600 mg ER Tab PO SCH (17:39)
--- NOTE | 2018-10-22 08:16 | CP.PCM.PN ---
Subjective - Date & Time of Evaluation Date of Evaluation: 10/22/18 Time of Evaluation: 08:16 - Subjective Subjective: Medicine Progress Note: Patient seen and examined at bedside. Per nursing no acute events occurred overnight .Patient denies any fevers, chills, headaches, dizziness, abdominal pain, or any other complaints. Objective - Vital Signs/Intake and Output Vital Signs (last 24 hours): Temp Pulse Resp BP Pulse Ox 98.1 F 80 20 120/58 L 95 10/21/18 23:25 10/21/18 23:25 10/21/18 23:25 10/21/18 23:25 10/21/18 23:25 - Medications Medications: Current Medications Acetaminophen (Tylenol 325mg Tab) 650 mg PO Q6 PRN PRN Reason: Fever >100.4 F Last Admin: 10/21/18 00:21 Dose: 650 mg Albuterol/Ipratropium (Duoneb 3 Mg/0.5 Mg (3 Ml) Ud) 3 ml INH RQ6 PRN PRN Reason: Shortness of Breath Amlodipine Besylate (Norvasc) 10 mg PO DAILY [facility] Last Admin: 10/21/18 09:42 Dose: 10 mg Dextrose (Dextrose 50% Inj) 0 ml IV STAT PRN; Protocol PRN Reason: Hypoglycemia Protocol Dextrose (Glutose 15) 0 gm PO ONCE PRN; Protocol PRN Reason: Hypoglycemia Protocol Glucagon (Glucagen Diagnostic Kit) 0 mg IM STAT PRN; Protocol PRN Reason: Hypoglycemia Protocol Guaifenesin (Mucinex La) 600 mg PO BID [facility] Last Admin: 10/21/18 17:39 Dose: 600 mg Heparin Sodium (Porcine) (Heparin) 5,000 units SC Q8 [facility] Last Admin: 10/22/18 06:48 Dose: 5,000 units Sodium Chloride (Sodium Chloride 0.9%) 1,000 mls @ 100 mls/hr IV .Q10H [facility] Last Admin: 10/21/18 06:05 Dose: 100 mls/hr Dextrose (Dextrose 5% In Water 1000 Ml) 1,000 mls @ 0 mls/hr IV .Q0M PRN; Protocol PRN Reason: Hypoglycemia Protocol Metformin HCl (Glucophage) 850 mg PO BID [facility] Last Admin: 10/21/18 17:39 Dose: 850 mg Nitrofurantoin Macrocrystals (Macrobid) 100 mg PO Q12H [facility]; Protocol Last Admin: 10/22/18 06:48 Dose: 100 mg Oseltamivir Phosphate (Tamiflu Cap) 75 mg PO BID [facility]; Protocol Stop: 10/25/18 14:39 Last Admin: 10/21/18 17:40 Dose: 75 mg Pantoprazole Sodium (Protonix Ec Tab) 40 mg PO DAILY [facility] Last Admin: 10/21/18 09:43 Dose: 40 mg - Labs Labs: 10/21/18 08:47 10/21/18 08:47 - Head Exam Head Exam: ATRAUMATIC, NORMAL INSPECTION - Eye Exam Eye Exam: EOMI, Normal appearance, PERRL Pupil Exam: NORMAL ACCOMODATION, PERRL. absent: Irregular, Unequal - ENT Exam ENT Exam: Mucous Membranes Moist, Normal Oropharynx - Respiratory Exam Respiratory Exam: Clear to Ausculation Bilateral, NORMAL BREATHING PATTERN. absent: Prolonged Expiratory Phase, Respiratory Distress - Cardiovascular Exam Cardiovascular Exam: REGULAR RHYTHM, +S1, +S2 - GI/Abdominal Exam GI & Abdominal Exam: Soft, Normal Bowel Sounds. absent: Hyperactive Bowel Sounds - Extremities Exam Extremities Exam: Full ROM, Normal Inspection. absent: Pedal Edema - Back Exam Back Exam: NORMAL INSPECTION. absent: paraspinal tenderness - Neurological Exam Neurological Exam: Alert, Awake, CN II-XII Intact, Oriented x3 - Psychiatric Exam Psychiatric exam: Normal Affect, Normal Mood. absent: Depressed - Skin Skin Exam: Dry, Intact, Normal Color Assessment and Plan - Assessment and Plan (Free Text) Plan: 73 year old female admitted for treatment of Influenza A Plan: Influenza A+ febrile on admission 102.7 tachy on admission 108 no leukocytosis Tamiflu x5 days Mucinex 600 PO BID Duoneb 3ml RQ6 PRN NS @100 Tylenol 650mg po q6 prn fevers f/u CXR UTI, suspected pt is asymptomatic UA: nitrates +, WBC 38, many bacteria f/u urine cx Continue macrobid 100mg po q12 HTN Continue home meds norvasc 10mg po qd HHD DM2 continue home meds, metformin 850mg po BID accuchecks ACHS hypoglycemia protocol Ppx VTE: heparin q8 GI: protonix 40mg po qd isolation precaution(droplet) Discussed with Dr. Jean-Claude Uribe, PGY-2
[2018-10-22 09:18] LABS: BASO % 0.9 % (0.0-2.0); EOS # 0.2 K/uL (0.0-0.7); EOS % 4.3 % (0.0-4.0); HEMOGLOBIN 11.3 g/dL (11.0-16.0); LYMPH # 1.9 K/uL (1.0-4.3); LYMPH % 34.6 % (20.0-40.0); MEAN CORPUSCULAR HEMOGLOBIN 31.1 pg (27.0-31.0); MEAN CORPUSCULAR HGB CONC 34.6 g/dL (33.0-37.0); MEAN PLATELET VOLUME 7.9 fL (7.2-11.7); MONO # 0.7 K/uL (0.0-0.8); MONO % 12.6 % (0.0-10.0); NEUT # 2.7 K/uL (1.8-7.0); NEUT % 47.6 % (50.0-75.0); RBC 3.65 Mil/uL (3.80-5.20); RED CELL DISTRIBUTION WIDTH 13.5 % (11.5-14.5); WHITE BLOOD COUNT 5.6 K/uL (4.8-10.8)
[2018-10-22] MEDS: guaiFENesin 600 mg ER Tab PO SCH ×2 (09:39→17:16)
[2018-10-22] MEDS: Pantoprazole 40 mg EC Tab PO SCH (09:40)
[2018-10-22 09:52] LABS: ALB/GLOB RATIO 1.4 (1.0-2.1); ALBUMIN 3.6 g/dL (3.5-5.0); ALT/SGPT 24 U/L (9-52); AST/SGOT 33 U/L (14-36); BLOOD UREA NITROGEN 7 mg/dL (7-17); CALCIUM 8.9 mg/dl (8.6-10.4); GFR NON-AFRICAN AMERICAN > 60
--- NOTE | 2018-10-22 16:50 | CP.PCM.DIS ---
Provider - Provider Date of Admission: 10/20/18 13:55 Attending physician: Issac Bermeo Jr, MD Time Spent in preparation of Discharge (in minutes): 45 Hospital Course - Lab Results Lab Results: Micro Results 10/20/18 14:17 Urine,Clean Catch Urine Culture - Final 10-50,000 CFU/ML. MULTIPLE SPECIES. PROBABLE CONTAMINATION. Most Recent Lab Values WBC 5.6 K/uL (4.8-10.8) 10/22/18 09:11 RBC 3.65 Mil/uL (3.80-5.20) L 10/22/18 09:11 Hgb 11.3 g/dL (11.0-16.0) 10/22/18 09:11 Hct 32.8 % (34.0-47.0) L 10/22/18 09:11 MCV 90.0 fL (81.0-99.0) 10/22/18 09:11 MCH 31.1 pg (27.0-31.0) H 10/22/18 09:11 MCHC 34.6 g/dL (33.0-37.0) 10/22/18 09:11 RDW 13.5 % (11.5-14.5) 10/22/18 09:11 Plt Count 211 K/uL (130-400) 10/22/18 09:11 MPV 7.9 fL (7.2-11.7) 10/22/18 09:11 Neut % (Auto) 47.6 % (50.0-75.0) L 10/22/18 09:11 Lymph % (Auto) 34.6 % (20.0-40.0) 10/22/18 09:11 [place] % (Auto) 12.6 % (0.0-10.0) H 10/22/18 09:11 Eos % (Auto) 4.3 % (0.0-4.0) H 10/22/18 09:11 Baso % (Auto) 0.9 % (0.0-2.0) 10/22/18 09:11 Neut # (Auto) 2.7 K/uL (1.8-7.0) 10/22/18 09:11 Lymph # (Auto) 1.9 K/uL (1.0-4.3) 10/22/18 09:11 [place] # (Auto) 0.7 K/uL (0.0-0.8) 10/22/18 09:11 Eos # (Auto) 0.2 K/uL (0.0-0.7) 10/22/18 09:11 Baso # (Auto) 0.0 K/uL (0.0-0.2) 10/22/18 09:11 Neutrophils % (Manual) 82 % (50-75) H 10/20/18 13:11 Band Neutrophils % 1 % (0-2) 10/20/18 13:11 Lymphocytes % (Manual) 6 % (20-40) L 10/20/18 13:11 Monocytes % (Manual) 10 % (0-10) 10/20/18 13:11 Eosinophils % (Manual) 1 % (0-4) 10/20/18 13:11 Platelet Estimate Normal (NORMAL) 10/20/18 13:11 Ovalocytes Slight 10/20/18 13:11 Sodium 137 mmol/L (132-148) 10/22/18 09:11 Potassium 3.7 mmol/L (3.6-5.2) 10/22/18 09:11 Chloride 107 mmol/L (98-107) 10/22/18 09:11 Carbon Dioxide 24 mmol/L (22-30) 10/22/18 09:11 Anion Gap 9 (10-20) L 10/22/18 09:11 BUN 7 mg/dL (7-17) 10/22/18 09:11 Creatinine 0.6 mg/dL (0.7-1.2) L 10/22/18 09:11 Est GFR ( Amer) > 60 10/22/18 09:11 Est GFR (Non-Af Amer) > 60 10/22/18 09:11 POC Glucose (mg/dL) 244 mg/dL (65-110) H 10/22/18 11:02 Random Glucose 125 mg/dL (65-105) H 10/22/18 09:11 Calcium 8.9 mg/dl (8.6-10.4) 10/22/18 09:11 Total Bilirubin 0.2 mg/dL (0.2-1.3) 10/22/18 09:11 AST 33 U/L (14-36) 10/22/18 09:11 ALT 24 U/L (9-52) 10/22/18 09:11 Alkaline Phosphatase 85 U/L (38-126) 10/22/18 09:11 Total Protein 6.2 g/dL (6.3-8.3) L 10/22/18 09:11 Albumin 3.6 g/dL (3.5-5.0) 10/22/18 09:11 Globulin 2.6 gm/dL (2.2-3.9) 10/22/18 09:11 Albumin/Globulin Ratio 1.4 (1.0-2.1) 10/22/18 09:11 Urine Color Yellow (YELLOW) 10/20/18 13:28 Urine Clarity Hazy (Clear) 10/20/18 13:28 Urine pH 5.0 (5.0-8.0) 10/20/18 13:28 Ur Specific [place] 1.015 (1.003-1.030) 10/20/18 13:28 Urine Protein 2+ mg/dL (NEGATIVE) H 10/20/18 13:28 Urine Glucose (UA) Normal mg/dL (Normal) 10/20/18 13:28 Urine Ketones Negative mg/dL (NEGATIVE) 10/20/18 13:28 Urine Blood Negative (NEGATIVE) 10/20/18 13:28 Urine Nitrate Positive (NEGATIVE) H 10/20/18 13:28 Urine Bilirubin Negative (NEGATIVE) 10/20/18 13:28 Urine Urobilinogen Normal mg/dL (0.2-1.0) 10/20/18 13:28 Ur Leukocyte Esterase Trace [place]/uL (Negative) 10/20/18 13:28 Urine WBC (Auto) 38 /hpf (0-5) H 10/20/18 13:28 Urine RBC (Auto) 2 /hpf (0-3) 10/20/18 13:28 Ur Squamous Epith Cells 1 /hpf (0-5) 10/20/18 13:28 Urine Bacteria Many (<OCC) H 10/20/18 13:28 Influenza Typ A,B (EIA) Pos for influenza a (NEGATIVE) H 10/20/18 13:18 - Hospital Course Hospital Course: Patient is a 73 year old female with pmhx of DM2 and HTN who presented to the ED with complaints of fevers, weakness, coughing, sore throat that began last night. Patient reports symptoms came on abruptly, and worsened throughout the day, prompting her to come to the ED for further evaluation. Patient reports her had similar symptoms last week for which his PMD prescribed him medication. Pt denies increasing weakness and lethargy, cough and sore throat. Denies chest pain, SOB, nausea, constipation, dysuria. Of not: pt was recently admitted on 10/12 for FB removal of esophagus for which she underwent an EGD pmhx: HTN, DM2 pshx: EGD, hysterectomy, right breast cystectomy meds: norvasc 10mg po, metformin 850mg po bid allergies: NKDA sochx: denies; lives with famhx: cardiac disease, DM2, parkinson's, alzheimer's Hospital Course: While admitted patient was found to be influenza positive. Patient started on Tamiflu as a result. Patient also found to have UTI. Patient started on PO Antibiotics. Patient started on home medications for hypertension and diabetes. Patient evaluated at today's visit and symptoms improving. Patient remains afebrile and without leukocytosis. Patient tolerating diet without any issues. Patient discharged. Imagin. Chest xray: no active disease Discharge Instructions: 1.F/u with PMD Dr. Bermeo within 5 days of discharge. 2. Return to hospital for any new or worsening symtpoms. Medications: 1.Tamilflu 75 mg PO BID, #6, No refills 2. Macrobid 100mg PO BID, #8, No refills. 3. Metformin 850mg PO BID, #60, No refills 4.Norvasc 10mg PO DAILY, #30, No refills 5.Mucinex 600mg PO BID, #30, No refills Discharge Exam - Head Exam Head Exam: ATRAUMATIC, NORMAL INSPECTION - Eye Exam Eye Exam: EOMI, Normal appearance, PERRL Pupil Exam: NORMAL ACCOMODATION - ENT Exam ENT Exam: Mucous Membranes Moist, Normal Oropharynx - Respiratory Exam Respiratory Exam: Clear to PA & Lateral, NORMAL BREATHING PATTERN, UNREMARKABLE. absent: Rales - Cardiovascular Exam Cardiovascular Exam: REGULAR RHYTHM, +S1, +S2 - GI/Abdominal Exam GI & Abdominal Exam: Normal Bowel Sounds, Unremarkable. absent: Hypoactive Bowel Sounds, Organomegaly - Neurological Exam Neurological exam: Alert, CN II-XII Intact, Oriented x3 - Psychiatric Exam Psychiatric exam: Normal Affect, Normal Mood - Skin Skin Exam: Dry, Intact Discharge Plan - Discharge Medications Prescriptions: amLODIPine [Norvasc] 10 mg PO DAILY #30 tab Guaifenesin [Mucinex ER] 600 mg PO BID #30 ter metFORMIN [glucOPHAGE] 850 mg PO BID #60 tab Nitrofurantoin Macrocrystals [Macrobid] 100 mg PO BID #8 cap Oseltamivir Phosphate [Tamiflu] 75 mg PO BID #6 capsule - Follow Up Plan Condition: STABLE Disposition: HOME/ ROUTINE
[2018-10-22 16:54] VITALS: BP 119/63; PULSE 69; TEMP 98.1; O2SAT 95
== END 2018-10-22 17:50 | disposition home or self-care (01) ==
LOC: C.ER 12:20 → C.9E 13:55 → C.6T 18:35
PROVIDERS: ADMIT Internal Medicine; ATTEND Internal Medicine
DX: J10.1 Influenza due to other identified influenza virus with other respiratory manifestations (principal); I10 Essential (primary) hypertension; G20 Parkinson's disease; F02.80 Dementia in other diseases classified elsewhere, unspecified severity, without behavioral disturbance, psychotic disturbance, mood disturbance, and anxiety; E11.9 Type 2 diabetes mellitus without complications; N39.0 Urinary tract infection, site not specified
CPT/HCPCS: 36415; 71046; 80053; 81001; 82948; 85025; 87086; 87804; 99285; G0378; J0696; J1644; J7030